=== PATIENT | female | born 1970 | race African-American/Black ===

== ENCOUNTER 2018-03-20 18:20 | Emergency (ER) | payer BC ==
[~2018-03-20] VITALS: Ht 172.7 cm; Wt 71.7 kg
[~2018-03-20 18:20] MED LIST: NKM; NORCO 5-325 TA1 EACH ORAL
[2018-03-20] MEDS ORDERED: Ketorolac 30mg Inj IM ONE (18:45)
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
[2018-03-20] MEDS ORDERED: NAPRELAN500 MG PO (19:26)
[2018-03-20 19:31] VITALS: BP 111/72
[2018-03-20 19:34] VITALS: BP 111/72
--- NOTE | 2018-03-20 20:03 | Diagnostic Imaging Report ---
History: TRAUMA Exam: XR RIGHT SHOULDER 3 views Comparison: None available FINDINGS: No fracture or dislocation. Small areas of calcific density lateral humeral head suggesting calcific tendinosis of the rotator cuff. The visualized right lung appears clear. IMPRESSION: No fracture or dislocation. Small areas of calcific density lateral humeral head suggesting calcific tendinosis of the rotator cuff.
== END 2018-03-20 19:39 | disposition home or self-care (01) ==
LOC: EMR 18:44
DX: M75.41 Impingement syndrome of right shoulder (principal); S43.421A Sprain of right rotator cuff capsule, initial encounter; W51.XXXA Accidental striking against or bumped into by another person, initial encounter; Y92.9 Unspecified place or not applicable; Z88.2 Allergy status to sulfonamides
CPT/HCPCS: 73030; 96372; 99283; J1885